=== PATIENT | male | born 1945 | race Caucasian/White ===

== ENCOUNTER 2020-04-13 07:56 | Day surgery (SDC) | payer MEDICARE ==
[~2020-04-13] VITALS: Ht 182.9 cm; Wt 120.2 kg
[~2020-04-13 07:56] MED LIST: ALLOPURINOL300 MG PO; AUGMENTIN875TAB OR; CENTRUM OR; ENALAPRIL20 MG OR; FISH OIL1000 MG OR; FLAX PO; HYDROCHLOROTH12.5 MG OR; LORTAB 5 OR; MEDDOSEPAK PO; METOPROLOL SUCC50 MG PO; MULTI OR; NORVASC5 M1 PO; PRESERVISION AREDS 2 PO; PRESERVISION PO; ROBITUSSIN AC10 ML PO
[2020-04-13 11:15] VITALS: BP 163/67
== END 2020-04-14 11:45 | disposition home or self-care (01) ==
LOC: ENDO 07:56 → ORM 08:45 → ENDO 08:50
PROVIDERS: ATTEND Surgery
PROC: 0DBL8ZX Excision of Transverse Colon, Via Natural or Artificial Opening Endoscopic, Diagnostic (ICD-10-PCS; principal; 2020-04-13)
PROC: 0DBK8ZX Excision of Ascending Colon, Via Natural or Artificial Opening Endoscopic, Diagnostic (ICD-10-PCS; 2020-04-13)
PROC: 0DBB8ZX Excision of Ileum, Via Natural or Artificial Opening Endoscopic, Diagnostic (ICD-10-PCS; 2020-04-13)
PROC: 0DBE8ZX Excision of Large Intestine, Via Natural or Artificial Opening Endoscopic, Diagnostic (ICD-10-PCS; 2020-04-13)
PROC: 3E0H8KZ Introduction of Other Diagnostic Substance into Lower GI, Via Natural or Artificial Opening Endoscopic (ICD-10-PCS; 2020-04-13)
DX: K50.00 Crohn's disease of small intestine without complications (principal); D12.3 Benign neoplasm of transverse colon; D12.2 Benign neoplasm of ascending colon; K64.8 Other hemorrhoids; I10 Essential (primary) hypertension; E11.9 Type 2 diabetes mellitus without complications; Z83.79 Family history of other diseases of the digestive system; Z20.828 Contact with and (suspected) exposure to other viral communicable diseases

== ENCOUNTER 2021-05-23 08:48 | Day surgery (SDC) | payer MEDICARE ==
[~2021-05-23 08:48] MED LIST changes: +FIBER THERAPY PO; +IRON PO; +[UNRECOGNIZED DRUG - OTHER] PO
[2021-05-23 12:00] VITALS: BP 174/76
== END 2021-05-23 11:57 | disposition home or self-care (01) ==
LOC: ENDO 08:48 → ORM 09:25 → ENDO 11:57 → ORM 12:15
PROVIDERS: ATTEND Surgery
PROC: 0DBC8ZX Excision of Ileocecal Valve, Via Natural or Artificial Opening Endoscopic, Diagnostic (ICD-10-PCS; principal; 2021-05-23)
PROC: 0DBL8ZX Excision of Transverse Colon, Via Natural or Artificial Opening Endoscopic, Diagnostic (ICD-10-PCS; 2021-05-23)
PROC: 3E0H8GC Introduction of Other Therapeutic Substance into Lower GI, Via Natural or Artificial Opening Endoscopic (ICD-10-PCS; 2021-05-23)
DX: D12.3 Benign neoplasm of transverse colon (principal); K63.9 Disease of intestine, unspecified; I10 Essential (primary) hypertension; E11.9 Type 2 diabetes mellitus without complications

== ENCOUNTER 2021-06-14 07:21 | Inpatient (IN) | payer MEDICARE ==
[~2021-06-14] VITALS: Ht 182.9 cm; Wt 109.3 kg
[2021-06-14] MEDS ORDERED: COQ-10100 M1 PO (09:15)
[2021-06-16] VITALS (12 sets, daily range): BP systolic 134–145; BP diastolic 45–55
[2021-06-16 13:35] LABS: IMMATURE GRANULOCYTES 0.2 % (0.0-5.0); MEAN CELL VOLUME 85.4 fL CALC (80.0-100.0); MEAN CORPUSCULAR HGB 27.5 pG CALC (26.0-32.0); MEAN CORPUSCULAR HGB CONC 32.3 g/dL CAL (32.0-36.0); NEUT# 10.4 thou/uL (1.82-7.42); RED BLOOD COUNT 3.63 mill/uL (4.70-6.10); RED CELL DISTRI WIDTH 13.6 % (11.5-15.5)
[2021-06-16 13:53] LABS: ANION GAP 14 (6-22 (CALC)); BUN 15 mg/dL (8-23); BUN/CREATININE RATIO 14 (12-20 (CALC)); CHLORIDE 108 mmol/l (95-108); GFR > 60 ML/MIN (>=60 (CALC)); GFR FOR AFR.AMER. > 60 ML/MIN (>=60 (CALC)); POTASSIUM 4.1 mmol/l (3.5-5.1); SODIUM 136 mmol/l (137-146)
[2021-06-16 14:03] LABS: CARBON DIOXIDE 18 mmol/l (22-30)
[2021-06-17] VITALS: BP 126/55
[2021-06-17 04:00] VITALS: BP 120/52
[2021-06-17 05:53] LABS: HEMOGLOBIN 9.3 g/dl (14.0-18.0); IMMATURE GRANULOCYTES 0.3 % (0.0-5.0); MEAN CELL VOLUME 88.5 fL CALC (80.0-100.0); MEAN CORPUSCULAR HGB 27.4 pG CALC (26.0-32.0); NEUT# 7.29 thou/uL (1.82-7.42); RED BLOOD COUNT 3.39 mill/uL (4.70-6.10); RED CELL DISTRI WIDTH 13.7 % (11.5-15.5)
[2021-06-17 06:12] LABS: ANION GAP 13 (6-22 (CALC)); BUN 16 mg/dL (8-23); BUN/CREATININE RATIO 12 (12-20 (CALC)); CARBON DIOXIDE 23 mmol/l (22-30); CHLORIDE 106 mmol/l (95-108); CREATININE 1.3 mg/dL (0.7-1.3); GFR 54 ML/MIN (>=60 (CALC)); GFR FOR AFR.AMER. > 60 ML/MIN (>=60 (CALC)); POTASSIUM 4.5 mmol/l (3.5-5.1); SODIUM 137 mmol/l (137-146)
[2021-06-17 16:00] VITALS: BP 140/48
[2021-06-17 19:00] VITALS: BP 140/63
[2021-06-18] VITALS: BP 148/52
[2021-06-18 04:00] VITALS: BP 169/55
[2021-06-18 05:29] LABS: HEMATOCRIT 31.3 % (39.0-50.0); HEMOGLOBIN 9.8 g/dl (14.0-18.0); MEAN CELL VOLUME 89.7 fL CALC (80.0-100.0); MEAN CORPUSCULAR HGB 28.1 pG CALC (26.0-32.0); MEAN CORPUSCULAR HGB CONC 31.3 g/dL CAL (32.0-36.0); RED BLOOD COUNT 3.49 mill/uL (4.70-6.10); RED CELL DISTRI WIDTH 13.7 % (11.5-15.5)
[2021-06-18 05:56] LABS: ANION GAP 14 (6-22 (CALC)); BUN 14 mg/dL (8-23); BUN/CREATININE RATIO 11 (12-20 (CALC)); CARBON DIOXIDE 21 mmol/l (22-30); CHLORIDE 106 mmol/l (95-108); CREATININE 1.3 mg/dL (0.7-1.3); GFR 54 ML/MIN (>=60 (CALC)); GFR FOR AFR.AMER. > 60 ML/MIN (>=60 (CALC)); MAGNESIUM 2.2 mg/dL (1.6-2.3); POTASSIUM 4.3 mmol/l (3.5-5.1); SODIUM 137 mmol/l (137-146)
[2021-06-18 08:00] VITALS: BP 162/58
[2021-06-18 15:32] VITALS: BP 152/46
[2021-06-18 20:00] VITALS: BP 155/70
[2021-06-19 04:00] VITALS: BP 165/59
[2021-06-19 05:27] LABS: HEMATOCRIT 30.3 % (39.0-50.0); HEMOGLOBIN 9.4 g/dl (14.0-18.0); MEAN CELL VOLUME 88.6 fL CALC (80.0-100.0); MEAN CORPUSCULAR HGB 27.5 pG CALC (26.0-32.0); RED BLOOD COUNT 3.42 mill/uL (4.70-6.10); RED CELL DISTRI WIDTH 13.6 % (11.5-15.5)
[2021-06-19 05:59] LABS: ANION GAP 12 (6-22 (CALC)); BUN 11 mg/dL (8-23); BUN/CREATININE RATIO 10 (12-20 (CALC)); CARBON DIOXIDE 24 mmol/l (22-30); CHLORIDE 105 mmol/l (95-108); CREATININE 1.1 mg/dL (0.7-1.3); GFR > 60 ML/MIN (>=60 (CALC)); GFR FOR AFR.AMER. > 60 ML/MIN (>=60 (CALC)); MAGNESIUM 2.1 mg/dL (1.6-2.3); POTASSIUM 4.1 mmol/l (3.5-5.1); SODIUM 137 mmol/l (137-146)
[2021-06-19 07:17] VITALS: BP 176/68
[2021-06-19 11:41] VITALS: BP 163/60
[2021-06-19 17:01] VITALS: BP 171/62
[2021-06-19 19:00] VITALS: BP 174/58
[2021-06-20 05:01] VITALS: BP 145/68; BP 163/51
[2021-06-20 05:37] LABS: HEMATOCRIT 29.2 % (39.0-50.0); HEMOGLOBIN 9.4 g/dl (14.0-18.0); MEAN CELL VOLUME 86.9 fL CALC (80.0-100.0); MEAN CORPUSCULAR HGB CONC 32.2 g/dL CAL (32.0-36.0); RED BLOOD COUNT 3.36 mill/uL (4.70-6.10); RED CELL DISTRI WIDTH 13.4 % (11.5-15.5)
[2021-06-20 06:17] LABS: BUN 10 mg/dL (8-23); BUN/CREATININE RATIO 9 (12-20 (CALC)); CARBON DIOXIDE 28 mmol/l (22-30); CHLORIDE 102 mmol/l (95-108); CREATININE 1.1 mg/dL (0.7-1.3); GFR > 60 ML/MIN (>=60 (CALC)); GFR FOR AFR.AMER. > 60 ML/MIN (>=60 (CALC)); SODIUM 138 mmol/l (137-146)
[2021-06-20 06:25] LABS: ANION GAP 12 (6-22 (CALC))
[2021-06-20 07:30] VITALS: BP 160/80
[2021-06-20 15:11] VITALS: BP 171/69
[2021-06-20 20:04] VITALS: BP 171/58
[2021-06-21] VITALS: BP 161/65
[2021-06-21 04:00] VITALS: BP 164/74
[2021-06-21 05:55] LABS: HEMATOCRIT 30.7 % (39.0-50.0); HEMOGLOBIN 9.7 g/dl (14.0-18.0); MEAN CELL VOLUME 87.2 fL CALC (80.0-100.0); MEAN CORPUSCULAR HGB 27.6 pG CALC (26.0-32.0); MEAN CORPUSCULAR HGB CONC 31.6 g/dL CAL (32.0-36.0); RED BLOOD COUNT 3.52 mill/uL (4.70-6.10); RED CELL DISTRI WIDTH 13.4 % (11.5-15.5)
[2021-06-21 06:26] LABS: ANION GAP 10 (6-22 (CALC)); BUN 9 mg/dL (8-23); BUN/CREATININE RATIO 9 (12-20 (CALC)); CARBON DIOXIDE 29 mmol/l (22-30); CHLORIDE 102 mmol/l (95-108); GFR > 60 ML/MIN (>=60 (CALC)); GFR FOR AFR.AMER. > 60 ML/MIN (>=60 (CALC)); MAGNESIUM 1.9 mg/dL (1.6-2.3); POTASSIUM 3.7 mmol/l (3.5-5.1); SODIUM 138 mmol/l (137-146)
[2021-06-21 06:31] LABS: BILIRUBIN, TOTAL 0.5 mg/dL (0.0-1.4); TOTAL PROTEIN 6.3 g/dL (6.3-8.2)
[2021-06-21 08:13] VITALS: BP 165/62
[2021-06-21 14:56] VITALS: BP 169/58
[2021-06-21 18:23] VITALS: BP 164/58
[2021-06-21 19:00] VITALS: BP 158/69
[2021-06-22] VITALS: BP 168/82
[2021-06-22 04:00] VITALS: BP 178/85
[2021-06-22 07:24] VITALS: BP 158/51
[2021-06-22 09:42] VITALS: BP 158/51
[2021-06-22] MEDS ORDERED: PERCOCET 5/321 COMBO PO (12:50)
[2021-06-29] MEDS ORDERED: PREVACID30 M3 PO (11:28)
== END 2021-06-22 15:15 | disposition home or self-care (01) | DRG 331 ==
LOC: ICU 06-16 09:05 → MS2 06-16 09:05 → OR 06-16 09:15 → MS2 06-16 14:07
PROVIDERS: Hospitalist; Nurse Practitioner; ADMIT Surgery; ATTEND Surgery
PROC: 0DTF0ZZ Resection of Right Large Intestine, Open Approach (ICD-10-PCS; principal; 2021-06-16)
DX: D12.3 Benign neoplasm of transverse colon (principal); I10 Essential (primary) hypertension; M10.9 Gout, unspecified; K21.9 Gastro-esophageal reflux disease without esophagitis
CPT/HCPCS: J0131

== ENCOUNTER 2023-04-17 07:45 | Day surgery (SDC) | payer MEDICARE ==
[~2023-04-17] VITALS: Ht 182.9 cm; Wt 113.4 kg
[~2023-04-17 07:45] MED LIST changes: +AMLODIPINE BESY10 MG PO; +CHLORTHALIDONE25 MG PO; +COQ-10100 M1 PO; +ENALAPRIL20 MG PO; +FLAXSEED OIL1000 MG PO; +PERCOCET 5/321 COMBO PO; +PREVACID30 M3 PO; +TOPROL XL50 MG PO; +ZOFRAN4 MG/TAB PO
[2023-04-17 10:16] VITALS: BP 141/50
== END 2023-04-17 10:21 | disposition home or self-care (01) ==
LOC: ENDO 07:45 → ORM 10:15 → ENDO 10:15
PROVIDERS: ATTEND Surgery
PROC: 0DJD8ZZ Inspection of Lower Intestinal Tract, Via Natural or Artificial Opening Endoscopic (ICD-10-PCS; principal; 2023-04-17)
DX: Z12.11 Encounter for screening for malignant neoplasm of colon (principal); K64.8 Other hemorrhoids; I10 Essential (primary) hypertension; Z90.49 Acquired absence of other specified parts of digestive tract; Z86.010 Personal history of colon polyps

== ENCOUNTER 2024-05-15 17:09 | Emergency (ER) | payer MEDICARE ==
[~2024-05-15] VITALS: Ht 182.9 cm; Wt 100.0 kg
[2024-05-15 17:48] VITALS: BP 159/51
[2024-05-15 18:01] VITALS: BP 145/54
[2024-05-15] MEDS ORDERED: predniSONE 20 MG/TAB PO ONE (18:20)
[2024-05-15] MEDS ORDERED: KETOROLAC TROMETHAMINE 15 MG/ML SDV IM ONE (18:20)
[2024-05-15] MEDS ORDERED: OSELTAMIVIR PHOSPHATE 75 MG/TAB CAP PO ONE (18:20)
[2024-05-15] MEDS ORDERED: TAM75CAP PO (18:28)
[2024-05-15] MEDS ORDERED: PREDNISONE20 MG PO (18:28)
[2024-05-15 18:30] VITALS: BP 153/57
[2024-05-15 19:01] VITALS: BP 196/72
== END 2024-05-15 19:13 | disposition home or self-care (01) ==
LOC: ED 17:09
DX: J10.1 Influenza due to other identified influenza virus with other respiratory manifestations (principal); I10 Essential (primary) hypertension; Z20.822 Contact with and (suspected) exposure to COVID-19
CPT/HCPCS: J1885